=== PATIENT | male | born 1980 | race African-American/Black ===

== ENCOUNTER 2018-02-14 01:21 | Emergency (ER) | payer SELFPAY ==
[~2018-02-14] VITALS: Ht 165.1 cm; Wt 72.0 kg
[2018-02-14] MEDS ORDERED: KETOROLAC 60MG/2ML VIAL IM ONE (02:00)
[2018-02-14] MEDS ORDERED: HYDROCODONE/ACETAMINOPHEN 10/325MG TABLET PO ONE (02:00)
[2018-02-14 03:30] VITALS: BP 128/74
== END 2018-02-14 03:31 | disposition home or self-care (01) ==
LOC: ER 01:21
DX: S22.32XA Fracture of one rib, left side, initial encounter for closed fracture (principal); J45.909 Unspecified asthma, uncomplicated; V43.52XA Car driver injured in collision with other type car in traffic accident, initial encounter; Y93.89 Activity, other specified; Y92.89 Other specified places as the place of occurrence of the external cause; Y99.8 Other external cause status
CPT/HCPCS: 71045; 96372; 99283; J1885

== ENCOUNTER 2018-02-26 10:48 | Emergency (ER) | payer SELFPAY ==
[~2018-02-26] VITALS: Ht 165.1 cm; Wt 80.0 kg
[2018-02-26 14:57] VITALS: BP 118/75
== END 2018-02-26 14:59 | disposition home or self-care (01) ==
LOC: ER 12:09
DX: Z04.1 Encounter for examination and observation following transport accident (principal); J45.909 Unspecified asthma, uncomplicated
CPT/HCPCS: 99282; 99283